=== PATIENT | male | born 1990 | race African-American/Black ===

== ENCOUNTER 2019-09-09 07:08 | Emergency (ER) | payer OTHER ==
[~2019-09-09] VITALS: Ht 165.1 cm; Wt 59.1 kg
[~2019-09-09 07:08] MED LIST: NOCURR
[2019-09-09 08:40] VITALS: BP 129/78
== END 2019-09-09 09:02 | disposition home or self-care (01) ==
LOC: EMS 07:09
DX: S80.212A Abrasion, left knee, initial encounter (principal); L03.116 Cellulitis of left lower limb; F12.90 Cannabis use, unspecified, uncomplicated; X58.XXXA Exposure to other specified factors, initial encounter; Y93.89 Activity, other specified; Y92.89 Other specified places as the place of occurrence of the external cause; Y99.8 Other external cause status